=== PATIENT | female | born 1995 | race Caucasian/White ===

== ENCOUNTER 2016-10-18 20:57 | Emergency (ER) | payer SELFPAY ==
[2016-10-18] MEDS ORDERED: Acetaminophen 325 MG Tab PO ONE (22:46)
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
[2016-10-19 00:31] VITALS: BP 112/57
== END 2016-10-18 23:00 | disposition home or self-care (01) ==
LOC: MW.ED 20:57
DX: O99.89 Other specified diseases and conditions complicating pregnancy, childbirth and the puerperium (principal); M54.5 Low back pain; R51 Headache; Z88.8 Allergy status to other drugs, medicaments and biological substances
CPT/HCPCS: 81001; 99284; A9270; 99283

== ENCOUNTER 2017-04-17 19:29 | Inpatient (IN) | payer MEDICAID ==
[2017-04-17] MEDS ORDERED: Butorphanol 1 MG/ML SDV IVPUSH PRN (19:47)
[2017-04-17] MEDS ORDERED: Lidocaine 1% 50 ML MDV INJECT PRN (19:47)
[2017-04-17] MEDS ORDERED: Methylergonovine 0.2 MG/1 ML Amp IM PRN (19:47)
[2017-04-17] MEDS ORDERED: Water For Irrigation,Sterile 1,000 ML Container IRR PRN (19:47)
[2017-04-17] MEDS ORDERED: Misoprostol 200 MCG Tab PO PRN (19:47)
[2017-04-17] MEDS ORDERED: Sodium Chloride 0.9% 2.5 ML Syringe FLUSH PRN (19:47)
[2017-04-17] MEDS ORDERED: Terbutaline 1 MG/ML SDV SUBCUT PRN (19:47)
[2017-04-17] MEDS ORDERED: Nalbuphine 10 MG/1 ML Vial IVPUSH PRN (19:47)
[2017-04-17] MEDS ORDERED: Sodium Chloride 0.9% 10 ML Syringe FLUSH PRN (19:47)
[2017-04-17] MEDS ORDERED: Carboprost Tromethamine 250 MCG/1 ML Amp IM PRN (19:47)
[2017-04-17] MEDS ORDERED: Oxytocin/Lactated Ringers 30 UNIT/500 ML BAG IV SCH ×2 (20:00)
[2017-04-17] MEDS ORDERED: Lactated Ringers 1,000 ML IV SCH (20:00)
[2017-04-17] MEDS ORDERED: Misoprostol 25 MCG (1/4 of 100 MCG) Tab VAG SCH (20:30)
[2017-04-17] MEDS ORDERED: Misoprostol 25 MCG (1/4 of 100 MCG) Tab PO SCH (20:30)
[2017-04-17] MEDS ORDERED: Acetaminophen 500 MG Tab PO PRN (20:55)
[2017-04-18] MEDS ORDERED: Misoprostol 25 MCG (1/4 of 100 MCG) Tab VAG PRN (00:30)
[2017-04-18] MEDS ORDERED: Misoprostol 25 MCG (1/4 of 100 MCG) Tab PO PRN (00:30)
[2017-04-18] MEDS ORDERED: hydrOXYzine Pamoate 25 MG Cap PO ONE (01:07)
[2017-04-18] MEDS ORDERED: Benzocaine/Menthol 20%-0.5% Spray 78 GM Cannister TOP PRN (03:16)
[2017-04-18] MEDS ORDERED: Bisacodyl 10 MG Supp RECTAL PRN (03:16)
[2017-04-18] MEDS ORDERED: Docusate Sodium 100 MG Cap PO PRN (03:16)
[2017-04-18] MEDS ORDERED: Ibuprofen 400 MG Tab PO PRN (03:16)
[2017-04-18] MEDS ORDERED: Witch Hazel Medicated Pads 40/Jar TOP PRN (03:16)
[2017-04-18] MEDS ORDERED: Acetaminophen 500 MG Tab PO PRN (03:16)
[2017-04-18] MEDS ORDERED: Lanolin 100% Cream 7 GM Tube TOP PRN (03:16)
[2017-04-18] MEDS: Ibuprofen 800 MG Tab PO PRN ×4 (03:27→23:13)
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
[2017-04-18] MEDS ORDERED: Measles, Mumps & Rubella Vaccine 0.5 ML SDV SUBCUT ONE (03:30)
--- NOTE | 2017-04-18 03:35 | PCM.DEL ---
L & D Note - General Info Date of Service: 04/18/17 Mother's Due Date: 04/24/17 - Delivery Note Cervical Ripening Method: Misoprostil Delivery Outcome: Livebirth Delivery Method: Spontaneous Vaginal Delivery-Single Presentation: Vertex Nuchal Cord: Present Anesthesia Type: None Episiotomy Type: None Laceration: None Placenta: Intact, Spontaneous Estimated Blood Loss: 100 Resuscitation Needed: No Foster: Stimulated Score 1 min: 8 Score 5 min: 9 Second Stage Interventions: Reports: Pushing Effectively, Pushing, Pulls Own Legs Back Delivery Comments (Free Text/Narrative):: of viable male over intact perineum. Head delivered with controlled pushing , shoulders and body followed easily. Infant to mothers abdomen with RN at for evaluation. pink and spont cry. Delayed cord clamping. Pitocin to IVF. Cord clamped and cut by FOB. Placenta delivered grossly intact with gentle traction. Inspection noted intact perineum. EBL 100cc, APGARS 8/9, infant weight 7lb 2oz. Mother and infant left in stable condition bonding well. Induction Criteria - Qureshi Score Qureshi Score Dilation: 1-2 cm Qureshi Score Effacement: 60-70% Qureshi Score 's Station: -2 Qureshi Score Consistency: Soft Qureshi Score Cervix Position: Midposition Qureshi Score Total: 7 Qureshi Score Presenting Part: Reports: Cephalic - Induction Gestational Age >/= 39 wks: Yes Estimated Pelvis: Reports: Adequate Reassuring Monitoring Strip: Yes Absence of Tachy Systole: Yes - General Info Date of Service: 04/18/17 Admission Dx/Problem (Free Text): Patient Status Order with Admit Dx/Problem 04/18/17 03:18 Patient Status [ADT] Routine Admission Diagnosis/Problem Admission Diagnosis/Problem 04/18/17 03:24 21 yo EDC 04/24/2017 39 1/7 wks, IOL for chronic back pain, A+, R- equivocal, GBS pos. PCN allergy Functional Status: Reports: Pain Controlled - Review of Systems General: Reports: No Symptoms HEENT: Reports: No Symptoms Pulmonary: Reports: No Symptoms Cardiovascular: Reports: No Symptoms Gastrointestinal: Reports: No Symptoms Genitourinary: Reports: No Symptoms Musculoskeletal: Reports: No Symptoms Skin: Reports: No Symptoms Neurological: Reports: No Symptoms Psychiatric: Reports: No Symptoms - Patient Data Weight - Most Recent: 81.193 kg Lab Results Last 24 Hours: Laboratory Results - last 24 hr 04/17/17 04/17/17 Range/Units 20:26 20:26 WBC 8.58 (4.0-11.0) K/uL RBC 4.57 (4.30-5.90) M/uL Hgb 13.8 (12.0-16.0) g/dL Hct 39.2 (36.0-46.0) % MCV 85.8 (80.0-98.0) fL MCH 30.2 (27.0-32.0) pg MCHC 35.2 (31.0-37.0) g/dL RDW Std Deviation 41.5 (28.0-62.0) fl RDW Coeff of Brandyn 14 (11.0-15.0) % Plt Count 191 (150-400) K/uL MPV 10.50 (7.40-12.00) fL Nucleated RBC % 0.0 /100WBC Nucleated RBCs # 0 K/uL Blood Type A POSITIVE Antibody Screen NEGATIVE Med Orders - Current: Current Medications Acetaminophen (Tylenol Extra Strength) 500 mg PO Q4H PRN PRN Reason: Pain Acetaminophen (Tylenol Extra Strength) 1,000 mg PO Q4H PRN PRN Reason: Pain Benzocaine/Menthol (Dermoplast Pain Relief 20%-0.5% [place]) 78 gm TOP ASDIRECTED PRN PRN Reason: Perineal Comfort Measure Last Admin: 04/18/17 03:28 Dose: 1 can Bisacodyl (Dulcolax) 10 mg RECTAL .ONCE PRN PRN Reason: Constipation Docusate Sodium (Colace) 100 mg PO BID PRN PRN Reason: Constipation Emollient Ointment (Lansinoh Hpa) 0 gm TOP ASDIRECTED PRN PRN Reason: Sore Nipples Ibuprofen (Motrin) 400 mg PO Q4H PRN PRN Reason: Pain Ibuprofen (Motrin) 800 mg PO Q6H PRN PRN Reason: Pain Last Admin: 04/18/17 03:27 Dose: 800 mg Measles/Mumps/Rubella Vaccine Live (M-M-R Ii Vaccine) 0.5 ml SUBCUT .ONCE ONE Stop: 04/18/17 03:31 Oxycodone HCl (Oxycodone) 5 mg PO Q2H PRN PRN Reason: Pain Witch Aneta (Tucks) 1 pad TOP ASDIRECTED PRN PRN Reason: comfort care Last Admin: 04/18/17 03:28 Dose: 1 tub Discontinued Medications Acetaminophen (Tylenol Extra Strength) 1,000 mg PO Q4H PRN PRN Reason: Pain Last Admin: 04/17/17 21:09 Dose: 1,000 mg Butorphanol Tartrate (Stadol) 1 mg IVPUSH Q1H PRN PRN Reason: Pain Carboprost Tromethamine (Hemabate Ds) 250 mcg IM ASDIRECTED PRN PRN Reason: Post Hemorrhage Hydroxyzine Pamoate (Vistaril) 50 mg PO ONETIME ONE Stop: 04/18/17 01:08 Last Admin: 04/18/17 01:42 Dose: 50 mg Cefotaxime Sodium 2 gm/ Sodium (Chloride) 100 mls @ 200 mls/hr IV ONETIME ONE Stop: 04/17/17 20:31 Last Admin: 04/17/17 21:02 Dose: 200 mls/hr Cefotaxime Sodium 1 gm/ Sodium (Chloride) 100 mls @ 200 mls/hr IV Q8HR GHADA Lactated Ringer's (Ringers, Lactated) 1,000 mls @ 150 mls/hr IV ASDIRECTED GHADA Last Admin: 04/17/17 20:46 Dose: 150 mls/hr Oxytocin/Lactated Ringer's (Pitocin In Lr 30 Units/500 Ml) 30 unit in 500 mls @ 2 mls/hr IV TITRATE GHADA; 2 MUNITS/MIN PRN Reason: Protocol Stop: 04/18/17 19:59 Oxytocin/Lactated Ringer's (Pitocin In Lr 30 Units/500 Ml) 30 unit in 500 mls @ 2 mls/hr IV TITRATE GHADA; 2 MUNITS/MIN PRN Reason: Protocol Lidocaine HCl (Xylocaine 1%) 50 ml INJECT .ONCE PRN PRN Reason: Laceration repair Methylergonovine Maleate (Methergine) 0.2 mg IM ASDIRECTED PRN PRN Reason: Post Hemorrhage Misoprostol (Cytotec) 200 mcg PO .ONCE PRN PRN Reason: Post Hemorrhage Misoprostol (Cytotec) 25 mcg VAG .ONCE GHADA Last Admin: 04/17/17 20:46 Dose: 25 mcg Misoprostol (Cytotec) 25 mcg VAG Q4H PRN PRN Reason: Cervical Ripening Misoprostol (Cytotec) 25 mcg PO .ONCE GHADA Last Admin: 04/17/17 20:46 Dose: 25 mcg Misoprostol (Cytotec) 25 mcg PO Q4H PRN PRN Reason: Cervical Ripening Nalbuphine HCl (Nubain) 10 mg IVPUSH Q1H PRN PRN Reason: Pain (severe 7-10) Last Admin: 04/17/17 22:02 Dose: 10 mg Sodium Chloride (Saline Flush) 10 ml FLUSH ASDIRECTED PRN PRN Reason: Keep Vein Open Sodium Chloride (Saline Flush) 2.5 ml FLUSH ASDIRECTED PRN PRN Reason: Keep Vein Open Sterile Water (Sterile Water For Irrigation) 1,000 ml IRR ASDIRECTED PRN PRN Reason: delivery Terbutaline Sulfate (Brethine) 0.25 mg SUBCUT ASDIRECTED PRN PRN Reason: Tacysystole - Exam General: Alert, Oriented Lungs: Normal Respiratory Effort GI/Abdominal Exam: Soft, Non-Tender, No Organomegaly, No Distention, No Abnormal Bruit, No Mass, Pelvis Stable (Female) Exam: Normal External Exam, Normal Bimanual Exam, Vaginal Bleeding Back Exam: Full Range of Motion Extremities: Normal Range of Motion, Non-Tender, No Pedal Edema, Normal Capillary Refill Skin: Warm, Dry, Intact Wound/Incisions: Healing Well Neurological: No New Focal Deficit, Normal Speech, Normal Tone Psy/Mental Status: Alert, Normal Affect, Normal Mood - Problem List & Annotations (1) Supervision of normal IUP (intrauterine ) in multigravida SNOMED Code(s): 128126294, 487308820, 058336715 Code(s): Z34.80 - ENCOUNTER FOR SUPRVSN OF NORMAL , UNSP TRIMESTER Status: Acute Priority: High Current Visit: Yes Qualifiers: Trimester: third trimester Qualified Code(s): Z34.83 - Encounter for supervision of other normal , third trimester (2) GBS (group B streptococcus) infection SNOMED Code(s): 852604290 Code(s): A49.1 - STREPTOCOCCAL INFECTION, UNSPECIFIED SITE Status: Acute Priority: High Current Visit: Yes (3) (normal spontaneous vaginal delivery) SNOMED Code(s): 07275513 Code(s): O80 - ENCOUNTER FOR FULL-TERM UNCOMPLICATED DELIVERY Status: Acute Priority: High Current Visit: Yes - Problem List Review Problem List Initiated/Reviewed/Updated: Yes - My Orders Last 24 Hours: My Active Orders 04/17/17 19:48 Bedrest Bathroom Privileges [RC] ASDIRECTED Heart Tones [RC] CONTINUOUS Non Stress Test [RC] PER UNIT ROUTINE May Shower [RC] ASDIRECTED Oxygen Therapy [RC] ASDIRECTED Up ad Janett [RC] ASDIRECTED Vaginal Exam [RC] PRN Vaginal Exam [RC] PRN Vital Signs [RC] PER UNIT ROUTINE Vital Signs [RC] PER UNIT ROUTINE 04/18/17 03:16 May Shower [RC] ASDIRECTED Up ad Janett [RC] ASDIRECTED Vital Signs [RC] PER UNIT ROUTINE Acetaminophen [Tylenol Extra Strength] 1,000 mg PO Q4H PRN Acetaminophen [Tylenol Extra Strength] 500 mg PO Q4H PRN Benzocaine/Menthol [Dermoplast Pain Relief 20%-0.5% [place]] 78 gm TOP ASDIRECTED PRN Bisacodyl [Dulcolax] 10 mg RECTAL .ONCE PRN Docusate Sodium [Colace] 100 mg PO BID PRN Ibuprofen [Motrin] 400 mg PO Q4H PRN Ibuprofen [Motrin] 800 mg PO Q6H PRN Lanolin [Lansinoh HPA] See Dose Instructions TOP ASDIRECTED PRN Measles, Mumps & Rubella [M-M-R II Vaccine] 0.5 ml SUBCUT .ONCE ONE Witch Aneta [Tucks] 1 pad TOP ASDIRECTED PRN oxyCODONE 5 mg PO Q2H PRN Assess Lochia [WOMSER] Per Unit Routine Assess Uterine Involution [WOMSER] Per Unit Routine Peripheral IV Discontinue [OM.PC] Routine Resuscitation Status Routine 04/18/17 03:18 Patient Status [ADT] Routine 04/18/17 Breakfast Regular Diet [DIET] - Plan Plan:: IOL A: 21 yo EDC 04/24/2017 39 1/7 wks, IOL for chronic back pain, A+, R- equivocal, GBS pos. PCN allergy P: Admit, Cive Cefotaxime 2gm IVBPB for GBS + with PCN allergy. Epidural prn. Anticipate
[2017-04-18] MEDS ORDERED: Oxytocin/0.9 % Sodium Chloride 30 UNIT/500 ML BAG IV SCH (04:15)
[2017-04-18] MEDS ORDERED: Cefotaxime 1 GM in Sodium Chloride 0.9% 100 ML IV SCH (04:30)
[2017-04-18] MEDS: oxyCODONE 5 MG Tab PO PRN ×7 (04:36→23:13)
[2017-04-18] MEDS: Acetaminophen 500 MG Tab PO PRN ×3 (06:26→20:10)
--- NOTE | 2017-04-19 08:24 | PCM.DCSUM1 ---
Discharge Summary - Hospital Course Free Text/Narrative:: Discharge home with . Follow up 6 weeks for post or sooner if needed. - Discharge Data Discharge Date: 04/19/17 Discharge Disposition: Home, Self-Care 01 Condition: Good - Discharge Diagnosis/Problem(s) (1) Supervision of normal IUP (intrauterine ) in multigravida SNOMED Code(s): 750400900, 463855882, 411491776 ICD Code: Z34.80 - ENCOUNTER FOR SUPRVSN OF NORMAL , UNSP TRIMESTER Status: Acute Priority: High Current Visit: Yes Qualifiers: Trimester: third trimester Qualified Code(s): Z34.83 - Encounter for supervision of other normal , third trimester (2) GBS (group B streptococcus) infection SNOMED Code(s): 938958205 ICD Code: A49.1 - STREPTOCOCCAL INFECTION, UNSPECIFIED SITE Status: Acute Priority: High Current Visit: Yes (3) (normal spontaneous vaginal delivery) SNOMED Code(s): 95536338 ICD Code: O80 - ENCOUNTER FOR FULL-TERM UNCOMPLICATED DELIVERY Status: Acute Priority: High Current Visit: Yes - Patient Instructions Diet: Usual Diet as Tolerated Activity: As Tolerated, Rest and Relax Today Driving: May Drive Today Showering/Bathing: May Shower Notify Provider of: Fever, Increased Pain, Drainage, Nausea and/or Vomiting Other/Special Instructions: Discharge home with infant. Follow up 6 weeks for post or sooner if needed. - Discharge Plan Home Medications: Home Meds . [No Known Home Meds] 06/03/16 [History] Referrals: [facility] [Outside] Joana Mcginnis CNM [Primary Care Provider] - 05/29/17 10:45 am - General Info Date of Service: 04/19/17 Admission Dx/Problem (Free Text: Patient Status Order with Admit Dx/Problem 04/18/17 03:18 Patient Status [ADT] Routine Admission Diagnosis/Problem Admission Diagnosis/Problem 04/18/17 03:24 21 yo EDC 04/24/2017 39 1/7 wks, IOL for chronic back pain, A+, R- equivocal, GBS pos. PCN allergy Functional Status: Reports: Pain Controlled, Tolerating Diet, Ambulating, Urinating - Review of Systems General: Reports: No Symptoms HEENT: Reports: No Symptoms Pulmonary: Reports: No Symptoms Cardiovascular: Reports: No Symptoms Gastrointestinal: Reports: No Symptoms Genitourinary: Reports: No Symptoms Musculoskeletal: Reports: No Symptoms Skin: Reports: No Symptoms Neurological: Reports: No Symptoms Psychiatric: Reports: No Symptoms - Patient Data Vitals - Most Recent: Last Vital Signs Temp 36.5 C 04/19/17 04:30 Pulse 64 04/19/17 04:30 Resp 17 04/19/17 04:30 BP 117/75 04/19/17 04:30 Pulse Ox 96 04/19/17 04:30 Weight - Most Recent: 81.193 kg Med Orders - Current: Current Medications Acetaminophen (Tylenol Extra Strength) 500 mg PO Q4H PRN PRN Reason: Pain Acetaminophen (Tylenol Extra Strength) 1,000 mg PO Q4H PRN PRN Reason: Pain Last Admin: 04/18/17 20:10 Dose: 1,000 mg Benzocaine/Menthol (Dermoplast Pain Relief 20%-0.5% [place]) 78 gm TOP ASDIRECTED PRN PRN Reason: Perineal Comfort Measure Last Admin: 04/18/17 03:28 Dose: 1 can Bisacodyl (Dulcolax) 10 mg RECTAL .ONCE PRN PRN Reason: Constipation Docusate Sodium (Colace) 100 mg PO BID PRN PRN Reason: Constipation Emollient Ointment (Lansinoh Hpa) 0 gm TOP ASDIRECTED PRN PRN Reason: Sore Nipples Ibuprofen (Motrin) 400 mg PO Q4H PRN PRN Reason: Pain Ibuprofen (Motrin) 800 mg PO Q6H PRN PRN Reason: Pain Last Admin: 04/18/17 23:13 Dose: 800 mg Oxycodone HCl (Oxycodone) 5 mg PO Q2H PRN PRN Reason: Pain Last Admin: 04/18/17 23:13 Dose: 5 mg Witch Aneta (Tucks) 1 pad TOP ASDIRECTED PRN PRN Reason: comfort care Last Admin: 04/18/17 03:28 Dose: 1 tub Discontinued Medications Acetaminophen (Tylenol Extra Strength) 1,000 mg PO Q4H PRN PRN Reason: Pain Last Admin: 04/17/17 21:09 Dose: 1,000 mg Butorphanol Tartrate (Stadol) 1 mg IVPUSH Q1H PRN PRN Reason: Pain Carboprost Tromethamine (Hemabate Ds) 250 mcg IM ASDIRECTED PRN PRN Reason: Post Hemorrhage Hydroxyzine Pamoate (Vistaril) 50 mg PO ONETIME ONE Stop: 04/18/17 01:08 Last Admin: 04/18/17 01:42 Dose: 50 mg Cefotaxime Sodium 2 gm/ Sodium (Chloride) 100 mls @ 200 mls/hr IV ONETIME ONE Stop: 04/17/17 20:31 Last Admin: 04/17/17 21:02 Dose: 200 mls/hr Cefotaxime Sodium 1 gm/ Sodium (Chloride) 100 mls @ 200 mls/hr IV Q8HR GHADA Lactated Ringer's (Ringers, Lactated) 1,000 mls @ 150 mls/hr IV ASDIRECTED GHADA Last Admin: 04/17/17 20:46 Dose: 150 mls/hr Oxytocin/Lactated Ringer's (Pitocin In Lr 30 Units/500 Ml) 30 unit in 500 mls @ 2 mls/hr IV TITRATE GHADA; 2 MUNITS/MIN PRN Reason: Protocol Stop: 04/18/17 19:59 Last Admin: 04/18/17 04:25 Dose: Not Given Oxytocin/Lactated Ringer's (Pitocin In Lr 30 Units/500 Ml) 30 unit in 500 mls @ 2 mls/hr IV TITRATE GHADA; 2 MUNITS/MIN PRN Reason: Protocol Oxytocin/Sodium Chloride (Oxytocin 30 Unit/500 Ml-Ns) 30 unit in 500 mls @ 2 mls/hr IV TITRATE GHADA; 2 MUNITS/MIN PRN Reason: Protocol Stop: 04/18/17 12:00 Last Admin: 04/18/17 03:03 Dose: 999 mls/hr Lidocaine HCl (Xylocaine 1%) 50 ml INJECT .ONCE PRN PRN Reason: Laceration repair Measles/Mumps/Rubella Vaccine Live (M-M-R Ii Vaccine) 0.5 ml SUBCUT .ONCE ONE Stop: 04/18/17 03:31 Methylergonovine Maleate (Methergine) 0.2 mg IM ASDIRECTED PRN PRN Reason: Post Hemorrhage Misoprostol (Cytotec) 200 mcg PO .ONCE PRN PRN Reason: Post Hemorrhage Misoprostol (Cytotec) 25 mcg VAG .ONCE GHADA Last Admin: 04/17/17 20:46 Dose: 25 mcg Misoprostol (Cytotec) 25 mcg VAG Q4H PRN PRN Reason: Cervical Ripening Misoprostol (Cytotec) 25 mcg PO .ONCE GHADA Last Admin: 04/17/17 20:46 Dose: 25 mcg Misoprostol (Cytotec) 25 mcg PO Q4H PRN PRN Reason: Cervical Ripening Nalbuphine HCl (Nubain) 10 mg IVPUSH Q1H PRN PRN Reason: Pain (severe 7-10) Last Admin: 04/17/17 22:02 Dose: 10 mg Sodium Chloride (Saline Flush) 10 ml FLUSH ASDIRECTED PRN PRN Reason: Keep Vein Open Sodium Chloride (Saline Flush) 2.5 ml FLUSH ASDIRECTED PRN PRN Reason: Keep Vein Open Sterile Water (Sterile Water For Irrigation) 1,000 ml IRR ASDIRECTED PRN PRN Reason: delivery Terbutaline Sulfate (Brethine) 0.25 mg SUBCUT ASDIRECTED PRN PRN Reason: Tacysystole - Exam General: Reports: Alert, Cooperative, No Acute Distress Lungs: Reports: Normal Respiratory Effort GI/Abdominal Exam: Soft, Non-Tender, No Organomegaly, No Distention, No Mass (Female) Exam: Vaginal Bleeding Rectal (Female) Exam: Deferred Back Exam: Reports: Full Range of Motion Extremities: Normal Range of Motion, Non-Tender, No Pedal Edema, Normal Capillary Refill Skin: Reports: Warm, Dry, Intact Wound/Incisions: Reports: Healing Well Neurological: Reports: No New Focal Deficit, Normal Speech, Normal Tone Psy/Mental Status: Reports: Alert, Normal Affect, Normal Mood *Q Meaningful Use (DIS) - VTE *Q VTE Criteria *Q: - Stroke *Q Stroke Criteria *Q: - AMI *Q AMI Criteria *Q:
[2017-04-19 09:45] VITALS: BP 131/81
[2017-04-19] MEDS: oxyCODONE 5 MG Tab PO PRN (10:26)
== END 2017-04-19 16:24 | disposition home or self-care (01) | DRG 775 ==
LOC: MW.OBCHECK 19:29 → MW.OB 19:31 → MW.OBCHECK 19:48 → MW.OB 19:48 → OBSVTOIN 04-18 03:02
PROVIDERS: ADMIT Obstetrics & Gynecology; ATTEND Obstetrics & Gynecology
PROC: 10E0XZZ Delivery of Products of Conception, External Approach (ICD-10-PCS; principal; 2017-04-18)
PROC: 3E0P7GC Introduction of Other Therapeutic Substance into Female Reproductive, Via Natural or Artificial Opening (ICD-10-PCS; 2017-04-18)
PROC: 10E0XZZ Delivery of Products of Conception, External Approach (ICD-10-PCS; 2017-04-18)
DX: O80 Encounter for full-term uncomplicated delivery (principal); Z3A.39 39 weeks gestation of pregnancy; Z37.0 Single live birth; Z88.8 Allergy status to other drugs, medicaments and biological substances
CPT/HCPCS: 36415; 59025; 85027; 86850; 86900; 86901; A9270-GY; J0698; J2300; J2590; J7030; J7120

== ENCOUNTER 2017-11-02 19:25 | Emergency (ER) | payer MEDICAID ==
[2017-11-02] MEDS ORDERED: Lidocaine 2% Viscous Solution 15 ML Cup PO ONE (19:55)
[2017-11-02] MEDS ORDERED: Benzocaine 20% Topical Spray UD MUCMEM ONE (19:55)
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
[2017-11-02 20:10] VITALS: BP 140/93
== END 2017-11-02 20:10 | disposition home or self-care (01) ==
LOC: MW.ED 19:25
DX: K02.9 Dental caries, unspecified (principal); Z88.1 Allergy status to other antibiotic agents; Z88.2 Allergy status to sulfonamides; Z87.891 Personal history of nicotine dependence
CPT/HCPCS: 99282; A9270

== ENCOUNTER 2019-03-14 15:18 | Emergency (ER) | payer OTHER ==
[2019-03-14 16:33] LABS: CHLORIDE,CL 101 mmol/L (98-107); SODIUM,NA 136 mmol/L (136-145)
--- NOTE | 2019-03-14 16:34 | US ---
HISTORY: Bleeding in early COMPARISON: None available of this gestation. TECHNIQUE: Transabdominal ultrasound examination of the early was performed. FINDINGS: A single intrauterine gestational sac is seen with a pole. The crown-rump length measurement of 1.9 cm gives an estimated gestational age of 8 weeks 4 days. The mean sac diameter of 3.8 centimeters gives an estimated age of 9 weeks 2 days. The composite estimated age by ultrasound is 9 weeks 0 days with an estimated date of delivery of 10/17/2019. The LMP is unknown. Regular cardiac activity is seen at 165 BPM. There is a small fluid collection in the right superior fundal region adjacent to the gestational sac consistent with a small subchorionic hemorrhage. There is no sign of free fluid in the pelvis. The ovaries are normal in appearance. IMPRESSION: Single intrauterine gestation with estimated age of 9 weeks 0 days. Regular cardiac activity is seen. Small right superior fundal subchorionic hemorrhage. Dictated by Diego Jimenez MD @ Mar 14 2019 4:30PM Signed by Dr. Diego Jimenez @ Mar 14 2019 4:33PM
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
[2019-03-14 17:10] VITALS: BP 104/54
== END 2019-03-14 17:05 | disposition home or self-care (01) ==
LOC: MW.ED 15:18
DX: O23.11 Infections of bladder in pregnancy, first trimester (principal); N30.01 Acute cystitis with hematuria; O20.8 Other hemorrhage in early pregnancy; O21.9 Vomiting of pregnancy, unspecified; O99.89 Other specified diseases and conditions complicating pregnancy, childbirth and the puerperium; R10.30 Lower abdominal pain, unspecified; O99.331 Smoking (tobacco) complicating pregnancy, first trimester; F17.210 Nicotine dependence, cigarettes, uncomplicated; Z3A.09 9 weeks gestation of pregnancy; Z88.2 Allergy status to sulfonamides; Z88.1 Allergy status to other antibiotic agents; Z98.890 Other specified postprocedural states
CPT/HCPCS: 36415; 76801; 76801-26; 80053; 81001; 84702; 84703; 85025; 86900; 86901; 87086; 99284-25

== ENCOUNTER 2019-11-09 13:32 | Emergency (ER) | payer OTHER, SELFPAY ==
[2019-11-09 13:43] VITALS: BP 101/58; PULSE 96
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
== END 2019-11-09 15:09 | disposition home or self-care (01) ==
LOC: MW.ED 13:32
DX: H66.001 Acute suppurative otitis media without spontaneous rupture of ear drum, right ear (principal); R09.82 Postnasal drip; N89.8 Other specified noninflammatory disorders of vagina; J45.909 Unspecified asthma, uncomplicated; F17.210 Nicotine dependence, cigarettes, uncomplicated; Z88.1 Allergy status to other antibiotic agents; Z88.2 Allergy status to sulfonamides; Z88.8 Allergy status to other drugs, medicaments and biological substances
CPT/HCPCS: 87480; 87491; 87510; 87591; 87660; 99283

== ENCOUNTER 2019-11-25 04:36 | Emergency (ER) | payer SELFPAY ==
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
[2019-11-25] MEDS ORDERED: diphenhydrAMINE 50 MG Cap PO ONE (05:11)
[2019-11-25 05:18] VITALS: PULSE 69
[2019-11-28 04:10] VITALS: BP 126/87
== END 2019-11-25 05:22 | disposition home or self-care (01) ==
LOC: MW.ED 04:36
DX: T78.40XA Allergy, unspecified, initial encounter (principal); J45.909 Unspecified asthma, uncomplicated; Z88.1 Allergy status to other antibiotic agents; Z88.2 Allergy status to sulfonamides; Z88.8 Allergy status to other drugs, medicaments and biological substances
CPT/HCPCS: 87081; 87880; 99283; A9270; 99282

== ENCOUNTER 2020-04-18 17:58 | Emergency (ER) | payer SELFPAY ==
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
[2020-04-18] MEDS ORDERED: Sodium Chloride 0.9% 10 ML Syringe FLUSH PRN (18:24)
[2020-04-18] MEDS ORDERED: Sodium Chloride 0.9% 2.5 ML Syringe FLUSH PRN (18:24)
[2020-04-18 18:43] LABS: BLOOD UREA NITROGEN,BUN 9 mg/dL (7.0-18.0); CARBON DIOXIDE,CO2 27.6 mmol/L (21.0-32.0); CHLORIDE,CL 105 mmol/L (98-107); GLUCOSE RANDOM 95 mg/dL (74-106); POTASSIUM,K 3.7 mmol/L (3.5-5.1); SODIUM,NA 141 mmol/L (136-145)
--- NOTE | 2020-04-18 19:20 | CR ---
INDICATION: Dyspnea. TECHNIQUE: AP portable chest x-ray. FINDINGS: Heart size normal. Lungs clear. There is either been a deep inspiration or the lungs are hyperinflated. Remainder negative. Dictated by Vicente Gomez MD @ Apr 18 2020 7:18PM Signed by Dr. Vicente Gomez @ Apr 18 2020 7:19PM
[2020-04-18 20:03] VITALS: BP 97/37; PULSE 69
== END 2020-04-18 20:04 | disposition home or self-care (01) ==
LOC: MW.ED 17:58
DX: R42 Dizziness and giddiness (principal); J45.909 Unspecified asthma, uncomplicated; Z88.1 Allergy status to other antibiotic agents; Z88.2 Allergy status to sulfonamides
CPT/HCPCS: 36415; 71045; 71045-26; 80053; 81001; 84484; 84703; 85025; 87086; 93005; 99283; 99285-25

== ENCOUNTER 2022-12-01 21:40 | Emergency (ER) | payer BC ==
[2022-12-01 22:06] VITALS: BP 120/69
[2022-12-01] MEDS ORDERED: Albuterol/Ipratropium 3.0-0.5 MG/3 ML Neb Soln NEB ONE (22:39)
[2022-12-01] MEDS ORDERED: predniSONE 10 MG Tab PO ONE (22:39)
[2022-12-01 23:21] VITALS: PULSE 97
== END 2022-12-01 23:13 | disposition home or self-care (01) ==
LOC: MW.ED 21:40
DX: J45.901 Unspecified asthma with (acute) exacerbation (principal); Z88.0 Allergy status to penicillin; Z88.2 Allergy status to sulfonamides; Z72.0 Tobacco use
CPT/HCPCS: 99284; A9270; 99283; J7620-GY

== ENCOUNTER 2023-07-02 12:04 | Emergency (ER) | payer BC ==
[2023-07-02 12:28] VITALS: BP 117/70; PULSE 85
== END 2023-07-02 13:04 | disposition home or self-care (01) ==
LOC: MW.ED 12:04
DX: H66.001 Acute suppurative otitis media without spontaneous rupture of ear drum, right ear (principal); J45.909 Unspecified asthma, uncomplicated; Z88.0 Allergy status to penicillin; Z88.2 Allergy status to sulfonamides
CPT/HCPCS: 99282; 99283

== ENCOUNTER 2024-05-09 11:37 | Emergency (ER) | payer BC ==
[2024-05-09] MEDS ORDERED: Sodium Chloride 0.9% 2.5 ML Syringe FLUSH PRN (11:39)
[2024-05-09] MEDS ORDERED: Sodium Chloride 0.9% 10 ML Syringe FLUSH PRN (11:39)
[2024-05-09 12:56] LABS: BASOPHILS ABSOLUTE AUTO 0.04 K/uL (0.00-0.20); BASOPHILS PERCENT AUTO 0.7 % (0.0-1.0); EOSINOPHILS ABSOLUTE AUTO 0.07 K/uL (0.00-0.45); EOSINOPHILS PERCENT AUTO 1.3 % (0.0-6.0); HEMATOCRIT 34.4 % (37.0-47.0); HEMOGLOBIN 11.9 g/dL (12.0-16.0); IMMATURE GRAN ABSOLUTE AUTO 0.01 K/uL (0.00-0.05); IMMATURE GRAN PERCENT AUTO 0.2 % (0.0-0.4); LYMPHOCYTES ABSOLUTE AUTO 1.65 K/uL (1.00-4.80); LYMPHOCYTES PERCENT AUTO 30.4 % (24.0-44.0); MEAN CORPUSCULAR HEMOGLOBIN 30.1 pg (28.0-32.0); MEAN CORPUSCULAR HGB CONC 34.6 g/dL (32.0-36.0); MEAN CORPUSCULAR VOLUME 86.9 fL (83.0-99.0); MEAN PLATELET VOLUME 9.6 fL (9.4-12.3); MONOCYTES ABSOLUTE AUTO 0.39 K/uL (0.00-0.80); MONOCYTES PERCENT AUTO 7.2 % (0.0-8.0); NEUTROPHILS ABSOLUTE AUTO 3.27 K/uL (1.80-7.70); NEUTROPHILS PERCENT AUTO 60.2 % (41.0-71.0); PLATELET COUNT,PLT 243 K/uL (150-400); RED BLOOD CELL COUNT 3.96 M/uL (4.10-5.30); WHITE BLOOD CELL COUNT,WBC 5.43 K/uL (3.9-11.3)
[2024-05-09 13:34] LABS: A/G RATIO 1.2 (0.9-1.6); ALBUMIN 3.6 g/dL (3.4-5.0); BILIRUBIN TOTAL 0.4 mg/dL (0.2-1.0); CALCIUM 9.4 mg/dL (8.5-10.1); CREATININE 0.8 mg/dL (0.6-1.0); EST CRCL DRUG DOSING (CG) 92.53 mL/min; POTASSIUM,K 3.9 mmol/L (3.5-5.1); PROTEIN TOTAL,TP 6.5 g/dL (6.4-8.2)
[2024-05-09 13:36] LABS: MAGNESIUM 1.8 mg/dL (1.8-2.4)
[2024-05-09 14:14] VITALS: BP 106/55; PULSE 60
== END 2024-05-09 14:10 | disposition home or self-care (01) ==
LOC: MW.ED 11:37
DX: I49.8 Other specified cardiac arrhythmias (principal); R07.89 Other chest pain; Z79.899 Other long term (current) drug therapy; Z88.0 Allergy status to penicillin; Z88.2 Allergy status to sulfonamides; Z88.8 Allergy status to other drugs, medicaments and biological substances
CPT/HCPCS: 36415; 80053; 83690; 83735; 84484; 84703; 85025; 85379; 93005; 99285

== ENCOUNTER 2024-06-28 10:40 | Emergency (ER) | payer BC ==
[2024-06-28] MEDS: Ibuprofen 800 MG Tab PO STA (12:05)
[2024-06-28] MEDS: Acetaminophen 500 MG Tab PO STA (12:05)
[2024-06-28] MEDS: Alum Hydrox/Mag Hydrox/Simeth 15 ML, Lidocaine 2% 5 ML PO STA (12:05)
== END 2024-06-28 13:00 | disposition home or self-care (01) ==
LOC: MW.ED 10:40
DX: J02.9 Acute pharyngitis, unspecified (principal); Z75.8 Other problems related to medical facilities and other health care; Z88.0 Allergy status to penicillin; Z88.8 Allergy status to other drugs, medicaments and biological substances; Z88.2 Allergy status to sulfonamides
CPT/HCPCS: 87428; 87651; 99283; A9270